=== PATIENT | male | born 1940 | race Caucasian/White ===

== ENCOUNTER 2019-02-19 11:04 | Emergency (ER) | payer OTHER ==
[~2019-02-19] VITALS: Ht 177.8 cm; Wt 108.0 kg
[~2019-02-19 11:04] MED LIST: COZAAR100 MG; GLIPIZIDE5 MG; GLUMETZA1000 MG; KLONOPIN0.5 MG/TAB; PAXIL20 MG; VASOTEC20 MG
[2019-02-19] MEDS ORDERED: SIMVASTATIN10 MG (11:35)
[2019-02-19] MEDS ORDERED: XARELTO20 MG (11:35)
[2019-02-19] MEDS ORDERED: RAMIPRIL10 MG (11:35)
[2019-02-19] MEDS ORDERED: FUROSEMIDE20 MG (11:36)
[2019-02-19] MEDS ORDERED: TAMS0.4C (11:37)
== END 2019-02-19 15:59 | disposition home or self-care (01) ==
LOC: ER 11:04
DX: S33.5XXA Sprain of ligaments of lumbar spine, initial encounter (principal); X50.0XXA Overexertion from strenuous movement or load, initial encounter; Y93.F2 Activity, caregiving, lifting; Y92.018 Other place in single-family (private) house as the place of occurrence of the external cause; Y99.8 Other external cause status

== ENCOUNTER 2021-12-15 17:56 | Emergency (ER) | payer OTHER ==
[~2021-12-15] VITALS: Ht 175.3 cm; Wt 106.6 kg
[~2021-12-15 17:56] MED LIST changes: +FUROSEMIDE20 MG; +RAMIPRIL10 MG; +SIMVASTATIN10 MG; +TAMS0.4C; +XARELTO20 MG
[2021-12-15] MEDS ORDERED: CARVEDILOL ER10 MG PO (18:17)
[2021-12-15] MEDS ORDERED: ZINC10 M1 PO (18:18)
[2021-12-15] MEDS ORDERED: MAGNESIUM400 MG PO (18:18)
[2021-12-15] MEDS ORDERED: METFORMIN HCL500 M2 PO (18:18)
== END 2021-12-15 20:58 | disposition home or self-care (01) ==
LOC: ER 17:56
DX: L98.499 Non-pressure chronic ulcer of skin of other sites with unspecified severity (principal)